=== PATIENT | male | born 2000 | race Caucasian/White ===

== ENCOUNTER 2019-07-15 03:25 | Emergency (ER) | payer MEDICAID, OTHER ==
[~2019-07-15] VITALS: Ht 182.9 cm; Wt 63.5 kg
--- NOTE | 2019-07-15 03:25 | NUR ---
Patient to ER bed 02 for evaluation. Side rails up.
--- NOTE | 2019-07-15 03:30 | NUR ---
Pt presents to ER with self from home with c/o right thumb pain. Pt states he cut his right thumb finger yesterday at approximately 1200 while working with . Pt presents with 1 cm laceration right thumb with minimal bleeding with red discoloration and swelling noted. Pt states he does not remember when his last Tetanus shot was. Pt has full range of motion to right thumb finger, sensation noted, 2 second capillary refill. Pt A&Ox4. Breath sounds bilaterally clear with no use of accessory muscles. Will continue to monitor. Addendum: 07/15/19 at 0509 by JOE Amendment undone in EDM - 07/15/19 at 0510 by JOE Pt states right thumb pain 09/11.
[2019-07-15 03:32] VITALS: BP_SYST 118
--- NOTE | 2019-07-15 03:35 | NUR ---
ER Dr. Michele at bedside examining patient.
[2019-07-15] MEDS ORDERED: HYDROcodone/ACETAMIN 5-325 MG TAB (NORCO/ VICODIN) PO ONE (03:45)
--- NOTE | 2019-07-15 03:52 | NUR ---
Radiology at bedside.
[2019-07-15] MEDS ORDERED: LIDOCAINE 1% 10 MG/ML, 20 ML MDV INJ ONE (04:00)
[2019-07-15] MEDS ORDERED: DIPH-TET-PERTUS Vaccine 0.5 ML VIAL (ADACEL) I.M. ONE (04:00)
[2019-07-15] MEDS ORDERED: cefTRIAXone 1 GM in LIDOCAINE 1%, 20 ML MDV 2.1 ML IM ONE (04:00)
--- NOTE | 2019-07-15 04:15 | NUR ---
Pt medicated per MD orders. Pt tolerated well.
[2019-07-15 04:26] VITALS: BP_SYST 120
--- NOTE | 2019-07-15 04:26 | NUR ---
Patient given written and verbal discharge instructions and verbalizes understanding. ER MD Michele discussed with patient the results and treatment provided. Patient in stable condition. ID arm band removed. Rx of Keflex and Woodruff given. Patient educated on pain management and to follow up with PMD. Pain Scale 2/10. Opportunity for questions provided and answered. Medication side effect fact sheet provided.
== END 2019-07-15 04:26 | disposition home or self-care (01) ==
LOC: SED 03:25
DX: S61.011A Laceration without foreign body of right thumb without damage to nail, initial encounter (principal); L03.011 Cellulitis of right finger; W45.8XXA Other foreign body or object entering through skin, initial encounter; Y93.89 Activity, other specified; Y92.89 Other specified places as the place of occurrence of the external cause; Y99.8 Other external cause status
CPT/HCPCS: 73140; 90471; 90715; 96372; 99284; J0696; J2001